=== PATIENT | male | born 1985 | race Caucasian/White ===

== ENCOUNTER 2019-08-16 12:59 | Emergency (ER) | payer MEDICAID ==
[~2019-08-16] VITALS: Ht 185.4 cm; Wt 90.7 kg
--- NOTE | 2019-08-16 13:17 | NUR ---
Patient discharged to home in stable conditon. Written and verbal after care instructions given. Patient verbalizes understanding of instructions.
[2019-08-16 13:18] VITALS: BP 116/78
== END 2019-08-16 13:18 | disposition home or self-care (01) ==
LOC: ER 12:59
DX: L02.413 Cutaneous abscess of right upper limb (principal)
CPT/HCPCS: A4663